=== PATIENT | female | born 2000 | race African-American/Black ===

== ENCOUNTER 2022-05-26 09:19 | Inpatient (IN) ==
[2022-05-26] MEDS ORDERED: CALCIUM GLUCONATE RIDER 1,000 MG/50 ML PREMIX IV PRN (09:46)
[2022-05-26] MEDS ORDERED: BETAMETH SODIUM PHOS/ACETATE 30 MG/5 ML VIAL IM SCH (10:00)
[2022-05-26] MEDS: LACTATED RINGERS 1,000 ML IV SCH ×2 (10:03→13:59)
[2022-05-26 10:13] LABS: Basophils % 0.1 % (0.0-0.8); Eosinophils % 0.2 % (0.00-10.9); Hematocrit 32.2 VOL% (35.7-47.0); Hemoglobin 10.4 GM/DL (12.0-16.0); Immature Granulocytes % 0.4 %; Immature Granulocytes Absolute 0.05 #; Mean Corpuscular HGB Conc 32.3 GM/DL (32-36); Mean Corpuscular Volume 86.6 FL (87-102); Mean Platelet Volume 12.9 FL (9.6-12.0); Monocytes # 0.8 10*3/uL (0.11-0.8); Monocytes % 7.2 % (1.7-12.7); Neutrophils % 75.1 % (38.7-73.9); Platelet Count 139 T/CUMM (130-400); Red Blood Count 3.72 MC/CUMM (3.8-5.5); Red Cell Distribution Width 13.8 % (9.3-17.3); White Blood Count 11.5 T/CUMM (4-12)
[2022-05-26] MEDS ORDERED: MAGNESIUM SULF RIDER 4 GM/100 ML PREMIX IV ONE (10:15)
[2022-05-26 10:24] LABS: Bilirubin,Urine Negative (Negative); Blood, Urine Negative (Negative); Glucose,Urine (UA) Negative (Negative); Ketones,Urine 5 mg/dL (Negative); Mucus,Urine Occasional /LPF (Occasional); Nitrite,Urine Negative (Negative); Protein,Urine 100 mg/dL (Negative); RBC,Urine 8 /HPF (0-4); Squamous Epithelial Cell,Urine Few /HPF (0-10); Urine Appearance CLOUDY (Clear); Urine Color Yellow (Yellow); Urine Specific Gravity 1.006 (1.001-1.035); Urine Urobilinogen < 2.0 eU/dL (<2.0)
[2022-05-26] MEDS ORDERED: MAGNESIUM SULF DRIP 40 GM/1,000 ML ML IV SCH (10:30)
[2022-05-26 10:36] LABS: Band Neutrophils 1 % (0-10); Lymphocytes 17 % (20-55); Total Cells Counted 100
[2022-05-26 10:37] LABS: Giant Platelets Few
[2022-05-26 10:38] LABS: Bilirubin,Total 0.8 MG/DL (0.20-1.00); Calcium 9.1 MG/DL (8.5-10.1); Osmolality,Calculated 271.7 MOS/KG (273-304); Potassium 3.5 MMOL/L (3.5-5.1); Total Protein 6.8 G/DL (6.4-8.2)
[2022-05-26] MEDS: AMPICILLIN INJ 2,000 MG in SODIUM CHLORIDE 0.9% 100 ML IV SCH ×2 (10:38→16:13)
[2022-05-26 10:39] LABS: Platelet Estimate Adequate
[2022-05-26] MEDS ORDERED: LACTATED RINGERS 1,000 ML IV ONE (15:57)
[2022-05-26] MEDS ORDERED: ONDANSETRON 4 MG/2 ML VIAL IV ONE (15:57)
[2022-05-26] MEDS ORDERED: CITRIC ACID/SODIUM CITRATE 30 ML UDCUP PO ONE (15:57)
[2022-05-26] MEDS ORDERED: hydrOXYzine HCL 25 MG/1 ML VIAL IM PRN (15:57)
[2022-05-26] MEDS ORDERED: NALOXONE 0.4 MG/ML VIAL IV PRN (15:57)
[2022-05-26] MEDS ORDERED: PROMETHAZINE 25 MG/1 ML VIAL IM ONE (15:57)
[2022-05-26] MEDS ORDERED: FAMOTIDINE 20 MG/2 ML VIAL IV ONE (15:57)
[2022-05-26] MEDS ORDERED: ePHEDrine 50 MG/ML VIAL IV PRN (15:57)
[2022-05-26] MEDS ORDERED: diphenhydrAMINE 50 MG/1 ML VIAL IV PRN ×2 (15:57)
[2022-05-26] MEDS ORDERED: fentaNYL 2 MCG/ROPIV 0.2% EPID 100 ML EPIDURAL SCH (16:00)
[2022-05-26] MEDS ORDERED: OXYTOCIN/LR 20 UNIT/1,000 ML BAG IV SCH (16:00)
[2022-05-26 19:14] LABS: Bilirubin,Urine Negative (Negative); Blood, Urine Small mg/dL (Negative); Glucose,Urine (UA) Negative (Negative); Ketones,Urine 80 mg/dL (Negative); Nitrite,Urine Negative (Negative); Protein,Urine Negative (Negative); RBC,Urine 1 /HPF (0-4); Urine Appearance CLEAR (Clear); Urine Color Straw (Yellow); Urine Specific Gravity 1.012 (1.001-1.035); Urine Urobilinogen < 2.0 eU/dL (<2.0)
[2022-05-26] MEDS ORDERED: TRANEXAMIC ACID 1,000 MG/10 ML VIAL ONE (19:15)
[2022-05-26] MEDS ORDERED: miSOPROStoL 200 MCG TABLET ONE (19:15)
[2022-05-26] MEDS ORDERED: SODIUM CHLORIDE 0.9% 0 ML IV ONE (19:15)
[2022-05-26] MEDS ORDERED: METHYLERGONOVINE 0.2 MG/1 ML AMP ONE (19:16)
[2022-05-26] MEDS ORDERED: CARBOPROST TROMETHAMINE 250 MCG/ML AMP IM ONE (19:16)
[2022-05-26 20:28] LABS: Cord Arterial Blood HCO3 16.6 MMOL/L
[2022-05-26] MEDS ORDERED: MEPERIDINE 25 MG/1 ML VIAL IV PRN (20:29)
[2022-05-26 20:30] LABS: Cord Venous Blood HCO3 17.6 MMOL/L; Cord Venous Blood PCO2 41.7 MMHG; Cord Venous Blood PO2 26.7
[2022-05-26] MEDS ORDERED: ONDANSETRON 4 MG/2 ML VIAL IV PRN (20:42)
[2022-05-26] MEDS ORDERED: HYDROCORTISONE 2.5% RECTAL CREAM 30 GM TUBE TOP PRN (23:54)
[2022-05-26] MEDS ORDERED: WITCH HAZEL PADS 100/JAR TOP PRN (23:54)
[2022-05-26] MEDS ORDERED: OXYTOCIN/LR 20 UNIT/1,000 ML BAG IV ONE (23:54)
[2022-05-26] MEDS ORDERED: MEASLES/MUMPS/RUBELLA VACCINE 0.5 ML VIAL SUBCUT ONE (23:54)
[2022-05-26] MEDS ORDERED: LANOLIN 50% CREAM 0.3 OZ TUBE TOP PRN (23:54)
[2022-05-26] MEDS ORDERED: DIPH/TET/ACEL PERT BOOSTER VACCINE 0.5 ML VIAL IM ONE (23:54)
[2022-05-26] MEDS ORDERED: RHO(D) IMMUNE GLOBULIN 300 MCG SYRINGE IM ONE (23:54)
[2022-05-26] MEDS ORDERED: oxyCODONE/ACETAMINOPHEN 5-325 MG TABLET PO PRN ×2 (23:54)
[2022-05-26] MEDS ORDERED: ACETAMINOPHEN 325 MG TABLET PO PRN (23:54)
[2022-05-26] MEDS ORDERED: BENZOCAINE 20%/MENTHOL 0.5% SPRAY 56 GM CAN TOP PRN (23:54)
[2022-05-26] MEDS ORDERED: BISACODYL 10 MG SUPP RECTAL PRN (23:54)
[2022-05-27] MEDS: IBUPROFEN 800 MG TABLET PO PRN ×3 (00:33→15:30)
[2022-05-27 05:46] LABS: Basophils % 0.1 % (0.0-0.8); Hematocrit 28.5 VOL% (35.7-47.0); Immature Granulocytes % 0.8 %; Immature Granulocytes Absolute 0.16 #; Lymphocytes # 1.5 10*3/uL (1.4-4.0); Lymphocytes % 7.5 % (21.3-54.2); Mean Corpuscular HGB Conc 31.6 GM/DL (32-36); Mean Corpuscular Volume 86.9 FL (87-102); Mean Platelet Volume 13.6 FL (9.6-12.0); Monocytes # 1.3 10*3/uL (0.11-0.8); Monocytes % 6.3 % (1.7-12.7); Neutrophils % 85.3 % (38.7-73.9); Platelet Count 136 T/CUMM (130-400); Red Blood Count 3.28 MC/CUMM (3.8-5.5); White Blood Count 20.4 T/CUMM (4-12)
[2022-05-27 06:12] LABS: Lymphocytes 12 % (20-55); Platelet Estimate Decreased; Total Cells Counted 100
[2022-05-27] MEDS: DOCUSATE SODIUM 100 MG CAPSULE PO SCH (21:22)
[2022-05-28 09:17] VITALS: BP 123/58
[2022-05-28] MEDS: DOCUSATE SODIUM 100 MG CAPSULE PO SCH (09:33)
[2022-05-28] MEDS: IBUPROFEN 800 MG TABLET PO PRN (13:06)
== END 2022-05-28 14:45 | disposition home or self-care (01) | DRG 560 ==
LOC: N.LDOUT 09:19 → N.LD 09:23 → N.OB 05-27 20:30
PROVIDERS: ADMIT Obstetrics & Gynecology; ATTEND Obstetrics & Gynecology